=== PATIENT | male | born 1965 | race Caucasian/White ===

== ENCOUNTER 2017-05-06 17:39 | Emergency (ER) | payer BC ==
[~2017-05-06] VITALS: Ht 172.7 cm; Wt 94.3 kg
[~2017-05-06 17:39] MED LIST: DIOVAN; GLUCOPHAGE; INVOKANA; SIMVASTATIN
--- NOTE | 2017-05-06 17:54 | NUR ---
Pt states he dropped a box on his left great toe at work today, hx of toenail fungus. Brusing and scant blood evident under toenail which is also somewhat loose. Pain 2/10. Pt denies CP, SOB, dizziness, n/v, no other complaints, no distress noted.
[2017-05-06] MEDS ORDERED: LIDOCAINE HCL 1% 20 ML VIAL TP ONE (19:00)
[2017-05-06] MEDS ORDERED: LIDOCAINE HCL 1% 20 ML VIAL ONE (19:09)
--- NOTE | 2017-05-06 19:15 | NUR ---
Assumed care of pt after change of shift report. Pt awaiting xray, resting comfortably. Dark downey left great toe nail noted partially removed from nail bed. No active bleeding or visible deformity.
[2017-05-06 20:32] VITALS: BP 131/87
== END 2017-05-06 20:30 | disposition home or self-care (01) ==
LOC: ER 17:40
DX: S99.922A Unspecified injury of left foot, initial encounter (principal); I10 Essential (primary) hypertension; E11.9 Type 2 diabetes mellitus without complications; Z88.8 Allergy status to other drugs, medicaments and biological substances; W22.8XXA Striking against or struck by other objects, initial encounter; Y93.89 Activity, other specified; Y92.89 Other specified places as the place of occurrence of the external cause; Y99.8 Other external cause status
CPT/HCPCS: 11730; 73660; 99284; A4217; A4663